=== PATIENT | female | born 1955 | race Caucasian/White ===

== ENCOUNTER 2019-02-10 17:15 | Emergency (ER) | payer OTHER ==
[~2019-02-10] VITALS: Ht 165.1 cm; Wt 65.8 kg
[2019-02-10 17:26] VITALS: BP 133/70
--- NOTE | 2019-02-10 17:26 | NUR ---
ED Nurse Note: Pt brought in by ambulance due to an allergic reaction at her dentist office this afternoon. Per pt, she took amoxicillin before dental proceudre and after an hour she started to present with generalized rashes and SOB. Pt is AAO x4, and she came in denying CP and SOB at this time. Noted scattered body rashes. VSS.
[2019-02-10] MEDS ORDERED: Solu-MEDROL 125mg Inj IVP ONE (17:45)
--- NOTE | 2019-02-10 17:45 | NUR ---
ED Nurse Note: Warm bankets provided.
[2019-02-10 17:52] LABS: BASOPHILS % (AUTO) 2.1 % (0.0-2.0); EOSINOPHILS % (AUTO) 1.3 % (0.0-3.0); HEMATOCRIT 41.4 % (37.0-47.0); HEMOGLOBIN 13.6 G/DL (12.0-16.0); LYMPHOCYTES % (AUTO) 46.7 % (20.0-45.0); MEAN CORPUSCULAR VOLUME 94 FL (80-99); MONOCYTES % (AUTO) 5.7 % (1.0-10.0); NEUTROPHILS % (AUTO) 44.1 % (45.0-75.0); PLATELET COUNT 304 K/UL (150-450); RED BLOOD COUNT 4.39 M/UL (4.20-5.40); RED CELL DISTRIBUTION WIDTH 11.5 % (11.6-14.8)
[2019-02-10 18:08] LABS: ANION GAP 12 mmol/L (5-15); BLOOD UREA NITROGEN 15 mg/dL (7-18); CALCIUM 9.8 MG/DL (8.5-10.1); CARBON DIOXIDE 26 MMOL/L (21-32); CHLORIDE 103 MMOL/L (98-107); POTASSIUM 3.5 MMOL/L (3.5-5.1); SODIUM 141 MMOL/L (136-145)
[2019-02-10 18:13] LABS: ALANINE AMINOTRANSFERASE 30 U/L (12-78); ALBUMIN 4.1 G/DL (3.4-5.0); ALBUMIN/GLOBULIN RATIO 1.2 (1.0-2.7); ALKALINE PHOSPHATASE 68 U/L (46-116); ASPARTATE AMINO TRANSFERASE 19 U/L (15-37); BILIRUBIN,TOTAL 0.4 MG/DL (0.2-1.0)
[2019-02-10] MEDS ORDERED: PREDNISONE20 MG ORAL (18:30)
[2019-02-10] MEDS ORDERED: PEPCID AC20 M2 PO (18:30)
[2019-02-10 18:40] VITALS: BP 127/70
--- NOTE | 2019-02-10 18:40 | NUR ---
ED Nurse Note: Pt cleared by ER MD for discharge. DC instructions/prescription was given and explained to pt and verbalized understanding of teachings. ID band/IV removed. Pt is AAO x4, ambulatory and left with all personal belongings.
--- NOTE | 2019-02-10 19:52 | Emergency Room Report ---
History of Present Illness General Chief Complaint: Allergic Reaction Source: Patient Present Illness HPI Patient presents emergency department today with acute allergic reaction. Patient states that she took some amoxicillin and then underwent a dental procedure. Possible 45 minutes after the amoxicillin and completion a dental procedure she began to develop acute onset a rash on her body. She became very anxious. Paramedics were contacted. Patient was given Benadryl prior to arrival. After receiving Benadryl patient began to have shakes although she was awake conscious she states that it was just chills. Patient's never had episodes of this before. She denies any shortness breath or tongue swelling. No other complaints were noted. Symptoms noted to be severe. Patient has no known drug allergies to amoxicillin or to any anesthetic.No other modifying factors. No other associated signs and symptoms. No other complaints were noted. Allergies: Coded Allergies: CODEINE (Verified Allergy, Intermediate, 02/10/19) Patient History Past Medical History: HTN Past Surgical History: none Pertinent Family History: none Social History: Denies: smoking, alcohol use, drug use Reviewed Nursing Documentation: PMH: Agreed; PSxH: Agreed Nursing Documentation-PMH Hx Hypertension: Yes Review of Systems All Other Systems: negative except mentioned in HPI Physical Exam Vital Signs Date Time Temp Pulse Resp B/P (MAP) Pulse Ox O2 Delivery O2 Flow Rate FiO2 02/10/19 17:16 98.2 73 18 124/89 100 02/10/19 18:40 Room Air Sp02 EP Interpretation: reviewed, normal General Appearance: normal inspection, well appearing, no apparent distress, alert Head: atraumatic Eyes: bilateral eye normal inspection ENT: normal ENT inspection, hearing grossly normal, normal voice Neck: normal inspection, full range of motion, supple, no bony tend Respiratory: normal inspection, lungs clear, normal breath sounds, no respiratory distress, no retraction, no wheezing Cardiovascular #1: regular rate, rhythm, no edema Gastrointestinal: normal inspection, normal bowel sounds, non tender, soft, no guarding, no hernia Genitourinary: no CVA tenderness Musculoskeletal: normal inspection, back normal, normal range of motion Neurologic: normal inspection, alert, responsive, speech normal Psychiatric: normal inspection, judgement/insight normal, mood/affect normal Skin: normal inspection, normal color, no rash Medical Decision Making Diagnostic Impression: Primary Impression: Allergic reaction ER Course Patient presents emergency department today complaining of a rash throughout the body. Differential considerations include acute allergic reaction, anaphylaxis, dermatitis just name a few.Given the severity of the patient's presentation I felt this is a highly complex patient. This patient required extensive workup. Patient's exam is consistent with severe allergic reaction although there is no evidence angioedema. Patient was given Cipro Medrol. Patient received Benadryl prior to arrival. Patient was given Pepcid. Patient was monitored in emergency department until symptoms normalize. Patient now back to baseline with only a small amount a rash in the legs. Given there is no evidence of airway involvement I feel the patient be discharged. Patient was given prescription for prednisone and Pepcid. Patient states that she'll take Benadryl home.Patient is advised to follow up with primary doctor in 2-3 days and return the emergency room for any worsening symptoms and as needed. Labs Test 02/10/19 17:28 White Blood Count 8.0 K/UL (4.8-10.8) Red Blood Count 4.39 M/UL (4.20-5.40) Hemoglobin 13.6 G/DL (12.0-16.0) Hematocrit 41.4 % (37.0-47.0) Mean Corpuscular Volume 94 FL (80-99) Mean Corpuscular Hemoglobin 31.0 PG (27.0-31.0) Mean Corpuscular Hemoglobin Concent 32.8 G/DL (32.0-36.0) Red Cell Distribution Width 11.5 % (11.6-14.8) Platelet Count 304 K/UL (150-450) Mean Platelet Volume 5.8 FL (6.5-10.1) Neutrophils (%) (Auto) 44.1 % (45.0-75.0) Lymphocytes (%) (Auto) 46.7 % (20.0-45.0) Monocytes (%) (Auto) 5.7 % (1.0-10.0) Eosinophils (%) (Auto) 1.3 % (0.0-3.0) Basophils (%) (Auto) 2.1 % (0.0-2.0) Sodium Level 141 MMOL/L (136-145) Potassium Level 3.5 MMOL/L (3.5-5.1) Chloride Level 103 MMOL/L (98-107) Carbon Dioxide Level 26 MMOL/L (21-32) Anion Gap 12 mmol/L (5-15) Blood Urea Nitrogen 15 mg/dL (7-18) Creatinine 1.0 MG/DL (0.55-1.30) Estimat Glomerular Filtration Rate 56.4 mL/min (>60) Glucose Level 108 MG/DL (74-106) Calcium Level 9.8 MG/DL (8.5-10.1) Total Bilirubin 0.4 MG/DL (0.2-1.0) Aspartate Amino Transf (AST/SGOT) 19 U/L (15-37) Alanine Aminotransferase (ALT/SGPT) 30 U/L (12-78) Alkaline Phosphatase 68 U/L (46-116) Total Protein 7.5 G/DL (6.4-8.2) Albumin 4.1 G/DL (3.4-5.0) Globulin 3.4 g/dL Albumin/Globulin Ratio 1.2 (1.0-2.7) Last Vital Signs Date Time Temp Pulse Resp B/P (MAP) Pulse Ox O2 Delivery O2 Flow Rate FiO2 02/10/19 18:40 98.2 71 17 127/70 100 Room Air Status: improved Disposition: HOME, SELF-CARE Condition: Stable Scripts Famotidine (PEPCID AC) 20 Mg Tablet 20 MG PO BID for 7 Days, TAB Prov: Nathan Pate MD 02/10/19 Prednisone* (PREDNISONE*) 20 Mg Tablet 40 MG ORAL DAILY, #10 TAB Prov: Nathan Pate MD 02/10/19 Referrals: NON PHYSICIAN (PCP) Patient Instructions: Drug Allergy, Allergies Nathan Pate MD Feb 10, 2019 19:52
== END 2019-02-10 18:40 | disposition home or self-care (01) ==
LOC: EDBD 17:15 → EMR 17:58
DX: T78.40XA Allergy, unspecified, initial encounter (principal); X58.XXXA Exposure to other specified factors, initial encounter; Z88.6 Allergy status to analgesic agent; I10 Essential (primary) hypertension
CPT/HCPCS: 36415; 80053; 85025; 96374; 96375; 99284; J2930; S0028